=== PATIENT | female | born 1940 | race Caucasian/White ===

== ENCOUNTER → 2021-01-22 14:17 | Outpatient (BNVA) | payer MEDICARE, SELFPAY | PROVIDERS: Family Provider Nurse Practitioner; PCP Nurse Practitioner; Visit Provider Specialist | DX: G25.0 Essential tremor (principal); R26.9 Unspecified abnormalities of gait and mobility; Z87.891 Personal history of nicotine dependence | CPT/HCPCS: 99214; 99215 ==

== ENCOUNTER → 2023-02-23 13:53 | Outpatient (BNVA) | payer MEDICARE, SELFPAY | PROVIDERS: Family Provider Nurse Practitioner; PCP Nurse Practitioner Family; Referring Provider Specialist; Visit Provider Specialist | DX: G25.0 Essential tremor; R26.89 Other abnormalities of gait and mobility | CPT/HCPCS: 99214 ==

== ENCOUNTER → 2024-02-26 09:28 | Outpatient (BNVA) | payer MEDICARE, SELFPAY | PROVIDERS: Family Provider Nurse Practitioner; PCP Nurse Practitioner Family; Visit Provider Specialist | DX: R29.90 Unspecified symptoms and signs involving the nervous system (principal); G25.0 Essential tremor; R26.9 Unspecified abnormalities of gait and mobility; R23.9 Unspecified skin changes | CPT/HCPCS: 99213 ==

== ENCOUNTER → 2024-04-25 10:44 | Outpatient (BNVA) | payer MEDICARE, SELFPAY | PROVIDERS: Family Provider Nurse Practitioner; PCP Nurse Practitioner Family; Referring Provider Specialist; Visit Provider Nurse Practitioner Family | DX: L57.0 Actinic keratosis (principal); L82.1 Other seborrheic keratosis; D69.2 Other nonthrombocytopenic purpura; L72.0 Epidermal cyst; D18.01 Hemangioma of skin and subcutaneous tissue; L85.3 Xerosis cutis; L91.8 Other hypertrophic disorders of the skin | CPT/HCPCS: 17000; 99203 ==

== ENCOUNTER → 2025-04-27 08:57 | Outpatient (BNVA) | payer MEDICARE, SELFPAY | PROVIDERS: Family Provider Nurse Practitioner; PCP Nurse Practitioner Family; Visit Provider Nurse Practitioner Family | DX: L21.8 Other seborrheic dermatitis (principal); L85.3 Xerosis cutis; D18.01 Hemangioma of skin and subcutaneous tissue; L57.8 Other skin changes due to chronic exposure to nonionizing radiation; X32.XXXA Exposure to sunlight, initial encounter | CPT/HCPCS: 17110; 99214 ==